=== PATIENT | male | born 1980 | race Caucasian/White ===

== ENCOUNTER 2021-11-01 07:07 | Emergency (ER) | payer OTHER ==
[2021-11-01] MEDS ORDERED: Acetaminophen/HYDROcodone 325-10 MG Tab PO ONE (07:08)
[2021-11-01 07:25] VITALS: BP 132/90; PULSE 71
[2021-11-01 07:48] LABS: CHLORIDE,CL 102 mmol/L (98-107); SODIUM,NA 139 mmol/L (136-145)
[2021-11-01] MEDS ORDERED: GI Cocktail Oral Solution 30 ML PO ONE (08:02)
[2021-11-01] MEDS ORDERED: Pantoprazole 40 MG Vial IVPUSH ONE (08:02)
[2021-11-01] MEDS ORDERED: Acetaminophen/HYDROcodone 325-10 MG Tab ONE (09:39)
== END 2021-11-01 09:46 | disposition home or self-care (01) ==
LOC: DL.ED 07:07
DX: R10.10 Upper abdominal pain, unspecified (principal); K21.9 Gastro-esophageal reflux disease without esophagitis; Z79.899 Other long term (current) drug therapy
CPT/HCPCS: 36415; 71045; 76705; 80053; 82150; 83605; 83690; 84484; 85025; 87040; 93005; 96374; 99284; A9270; C9113; 93010

== ENCOUNTER 2022-07-27 14:46 | Emergency (ER) | payer OTHER ==
[2022-07-27 15:01] VITALS: BP 115/74; PULSE 101
[2022-07-27] MEDS ORDERED: Famotidine 20 MG/2 ML SDV IVPUSH ONE (15:25)
[2022-07-27] MEDS ORDERED: GI Cocktail Oral Solution 30 ML PO ONE (15:25)
[2022-07-27 15:46] LABS: ANION GAP 12.6 mEq/L (7-13); CHLORIDE,CL 103 mmol/L (98-107); SODIUM,NA 140 mmol/L (136-145)
[2022-07-27 15:50] LABS: ESTIMATED GFR 105 mL/min (>=60)
[2022-07-27] MEDS ORDERED: Iopamidol 612 MG/ML 100 ML Bottle IVPUSH ONE (16:27)
[2022-07-27 16:32] LABS: CORONAVIRUS COVID-19 NAA NEGATIVE (NEGATIVE); RESPIRATORY SYNCYTIAL VIR NAA NEGATIVE (NEGATIVE)
== END 2022-07-27 17:43 | disposition home or self-care (01) ==
LOC: DL.ED 14:46
DX: K21.9 Gastro-esophageal reflux disease without esophagitis (principal); K86.2 Cyst of pancreas; Z79.899 Other long term (current) drug therapy; Z20.822 Contact with and (suspected) exposure to COVID-19
CPT/HCPCS: 0241U; 36415; 71045; 74177; 80053; 82150; 83605; 83690; 83735; 84484; 85025; 85379; 86140; 96374; 99285; A9270; J3490; Q9967